=== PATIENT | male | born 1940 | race Caucasian/White ===

== ENCOUNTER 2019-11-01 05:36 | Inpatient (IN) | payer OTHER ==
[2019-10-21 15:18] LABS: BASOPHILS # (AUTO) 0.1 X10'3 (0-0.2); BASOPHILS % (AUTO) 0.9 % (0-1); CLARITY,URINE CLEAR (Clear); COLOR,URINE YELLOW (Yellow); EOSINOPHILS # (AUTO) 0.1 X10'3 (0-0.9); GLUCOSE, URINE NEGATIVE (Neg); KETONES,URINE NEGATIVE (Neg); LEUKOCYTE ESTERASE ,URINE NEGATIVE (Neg); LYMPHOCYTES # (AUTO) 3.4 X10'3 (1.1-4.8); LYMPHOCYTES % (AUTO) 31.7 % (21-51); MEAN CORPUSCULAR VOLUME 86.6 FL (78-98); MEAN PLATELET VOLUME 9.5 FL (7.4-10.4); MONOCYTES # (AUTO) 0.5 X10'3 (0-0.9); MONOCYTES % (AUTO) 4.9 % (2-12); NEUTROPHILS # (AUTO) 6.6 X10'3 (1.8-7.7); NEUTROPHILS % (AUTO) 61.5 % (42-75); NITRITES, URINE NEGATIVE (Neg); OCCULT BLOOD,URINE NEGATIVE (Neg); PH,URINE 6.5 (4.8-8.0); PRE OP HEMOGLOBIN 15.2 g/dL (14.0-17.9); PRE OP PLATELET COUNT 176 X10'3 (140-440); PROTEIN,URINE NEGATIVE (Neg); RED BLOOD COUNT 4.91 X10'6 (4.70-6.10); RED CELL DISTRIBUTION WIDTH 13.2 % (11.5-14.5); UROBILINOGEN,URINE 0.2 E.U/dL (0.2-1.0)
[2019-10-21 15:27] LABS: UA COLLECTION TYPE CLN CATCH MIDSTREAM
[2019-10-21 15:33] LABS: PRE OP PROTIME 10.3 SECONDS (9.0-12.0)
[2019-10-21 15:35] LABS: ALBUMIN 3.8 G/DL (3.4-5.0); ALBUMIN/GLOBULIN RATIO 1.3 (1.1-1.5); BLOOD UREA NITROGEN 24 MG/DL (7-18); BUN/CREATININE RATIO 23.3 (5.4-32.0); CALCIUM 8.4 MG/DL (8.5-10.1); CHLORIDE 107 MMOL/L (99-107); CREATININE 1.03 MG/DL (0.60-1.10); PRE OP ALT 20 U/L (30-65); PRE OP ANION GAP 7 (8-16); PRE OP AST 19 U/L (10-37); PRE OP BILIRUB, TOTAL 0.5 MG/DL (0.0-1.0); PRE OP GLUCOSE 113 MG/DL (70-104); PRE OP POTASSIUM 4.1 MMOL/L (3.4-5.1); PRE OP SODIUM 140 MMOL/L (135-145); TOTAL CARBON DIOXIDE 25.6 MMOL/L (24-32); TOTAL PROTEIN 6.7 G/DL (6.4-8.2); eGFR 69 ML/MIN
[2019-10-21 15:55] LABS: MEAN CORPUSCULAR HGB CONC 34.8 g/dL (33.0-36.5); PRE OP HEMATOCRIT 43.3 % (42.0-52.0)
[2019-10-21 16:00] LABS: ALKALINE PHOSPHATASE 83 IU/L (46-116)
[2019-11-01] VITALS (18 sets, daily range): BP systolic 99–146; BP diastolic 51–85
[~2019-11-01] VITALS: Ht 172.7 cm; Wt 78.1 kg
[~2019-11-01 05:36] MED LIST: ALPR-624 PO; ASCO500C15 PO; ASPI-611 PO; CHOL400T14 PO; CLOP75TA15 PO; CYAN-51 PO; EVOL140P; FINA5TAB11 PO; FISH OIL; FLO0.4C PO; LISI-604 PO; MAGN400C PO; NAPR220C15 PO; NITR0.4T48 SL; OMEP-297 PO; POTASSIUM; RANO500T3 PO; UBID100C16 PO; cefazolin/dext.iso 2gm/100ml 100 ML IV ONE; famotidine 20mg tablet PO ONE; ringers solution, lacted 1,000 ML IV SCH
[2019-11-01] MEDS ORDERED: LIDOcaine 1% (10mg/ml) 2ml vial ONE (06:01)
[2019-11-01] MEDS ORDERED: labetalol 20mg/4ml (5mg/ml) syringe IV PRN (06:30)
[2019-11-01] MEDS ORDERED: ondansetron/PF 4mg/2ml inj IV PRN ×2 (06:30→13:50)
[2019-11-01] MEDS ORDERED: hydrALAZINE 20mg/ml inj. IV PRN (06:30)
[2019-11-01] MEDS ORDERED: ringers solution, lacted 1,000 ML IV SCH (06:30)
[2019-11-01] MEDS ORDERED: morphine 4 MG/ML inj SYRINge IV PRN ×2 (06:30)
[2019-11-01] MEDS ORDERED: fentaNYL/PF 50MCG/1 ML 2ML syringe IV PRN ×2 (06:30)
[2019-11-01] MEDS ORDERED: epiNEPHrine 1 mg/ml inj ONE (06:47)
[2019-11-01] MEDS ORDERED: bacitracin 15gm ointment TP ONE (06:47)
[2019-11-01] MEDS ORDERED: gentamicin 40 MG/1 ML inj ONE (06:47)
[2019-11-01] MEDS ORDERED: triamcinolone acetonide 40mg/ml inj ONE (06:47)
[2019-11-01] MEDS ORDERED: BUPIVAcaine/PF 2.5 mg/ml (0.25%) 30ml vial ONE (06:47)
[2019-11-01] MEDS ORDERED: BUPIVACAINE liposomal/PF 13.3 MG/ML vial IM ONE (06:48)
[2019-11-01] MEDS ORDERED: Thrombin (Bovine) 5,000 unit vial TP ONE (06:48)
[2019-11-01] MEDS ORDERED: sevoflurane 250ml liquid IH ONE (06:50)
[2019-11-01] MEDS ORDERED: etomidate 2mg/ml inj. ONE (06:50)
--- NOTE | 2019-11-01 06:51 | NUR ---
C/O NUMBNESS HIP TO TOES ON THE LEFT, WITH SOME MUSCLE WEAKNESS AND CRAMPS ON LEFT LEG.
--- NOTE | 2019-11-01 06:54 | NUR ---
C/O PAIN L LUMBAR AREA TO L TOES
[2019-11-01] MEDS ORDERED: fentaNYL /PF 50mcg/ml 5ml ampule ONE (07:11)
[2019-11-01] MEDS ORDERED: midazolam 2 mg/2 ml injection ONE (07:11)
[2019-11-01] MEDS ORDERED: ondansetron/PF 4mg/2ml inj ONE (07:12)
[2019-11-01] MEDS ORDERED: rocuronium 10mg/ml inj IV ONE (07:12)
[2019-11-01] MEDS ORDERED: dexamethasone sod phosphate 4mg/ml inj. ONE (07:12)
[2019-11-01] MEDS ORDERED: LIDOcaine 2% (20mg/ml) 5ml vial ONE ×2 (07:12→09:36)
[2019-11-01] MEDS ORDERED: propofol inj 20 ML IV ONE ×3 (07:12→09:36)
[2019-11-01] MEDS ORDERED: tranexamic acid inj. 1,000 MG in normal saline 100ml IV soln 100 ML IV ONE (07:40)
[2019-11-01] MEDS ORDERED: vancomycin 1,000mg inj ONE (07:40)
[2019-11-01] MEDS ORDERED: phenylephrine 10mg/ml inj. ONE (08:12)
[2019-11-01] MEDS ORDERED: ePHEDrine 50MG/ML INJ. ONE (08:59)
[2019-11-01] MEDS ORDERED: fentaNYL/PF 50MCG/1 ML 2ML syringe ONE (10:59)
[2019-11-01] MEDS ORDERED: ceFAZolin 1000mg inj ONE ×2 (11:48)
[2019-11-01] MEDS ORDERED: morphine 10mg/ml inj. ONE (12:05)
--- NOTE | 2019-11-01 13:35 | NUR ---
Received from OR via BED , accompanied by Anesthesiologist DR LIRA and report given by Anesthesiolgist. PATIENT WAKING UP, DENIES PAIN, V/S WNL, NEUROVASCULAR CHECKS INTACT, 18G PIV LUE , DRESSING TO SPINE W/ HV TO GRAVITY CDI W/ SCD ON. F/C DRAINING CLEAR YELLOW URINE.
[2019-11-01] MEDS ORDERED: CADD PCA waste documentation MC PRN (13:55)
[2019-11-01] MEDS ORDERED: naloxone 0.4 mg/ml inj IV PRN (13:55)
--- NOTE | 2019-11-01 14:20 | NUR ---
received report from Juan
--- NOTE | 2019-11-01 14:45 | NUR ---
PATIENT SLEEPY BUT ORIENTED X4, DENIES PAIN, V/S WNL, NEUROVASCULAR CHECKS INTACT, 18G PIV LUE , DRESSING TO SPINE W/ HV TO GRAVITY CDI W/ SCD ON. F/C DRAINING CLEAR YELLOW URINE. NO NEURO DEFICETS OBSERVED, PUPILS PEARRLA, CARRASCO WITH EQUAL STRENGTH AND CSM INTACT.. PATIENT TAKEN TO 4007 WITH ALL BELONGINGS AND HOOKED UP TO MONITORS IN ROOM AND REPORT GIVEN TO SPRAYING MACHINE OPERATOR WHO HAS TAKEN OVER PATIENT CARE
[2019-11-01] MEDS ORDERED: ALPRAZolam 0.5mg tablet PO PRN (15:30)
[2019-11-01] MEDS ORDERED: nitroGLYCERIN 0.4mg SUBLingual tab SL PRN (15:30)
[2019-11-01] MEDS ORDERED: EVOLOCUMAB 140 MG IJ SCH (15:30)
[2019-11-01] MEDS: HYDROmorphone/NS 1 mg/ml CADD 50 ML IV SCH ×2 (16:14→17:00)
[2019-11-01] MEDS: OMEGA-3/DHA/EPA/FISH OIL 1 EACH CAPSULE.DR PO SCH ×2 (16:26→20:45)
[2019-11-01] MEDS ORDERED: HYDROmorphone inj. 0.5 MG/0.5 ML DISP.SYRIN IV PRN (17:10)
[2019-11-01] MEDS: potassium CL 20mEq in D5-1/2NS 1,000 ML IV SCH (17:14)
--- NOTE | 2019-11-01 18:00 | NUR ---
Patient in room ORTHO 4007. I have received report from LUC Kirkpatrick and had the opportunity to ask questions and assume patient care.
--- NOTE | 2019-11-01 18:04 | NUR ---
RECEIVED REPORT FROM DANG CALLE AND ASSUMED PATIENT CARE
--- NOTE | 2019-11-01 18:28 | NUR ---
Problems reprioritized. Patient report given, questions answered & plan of care reviewed with SHEA CALLE.
[2019-11-01] MEDS: cefazolin/dext.iso 2gm/100ml 100 ML IV SCH (19:07)
[2019-11-01] MEDS ORDERED: non-formulary drug (Ubidecarenone (Coq-10) 100 MG) PO SCH (20:00)
[2019-11-01] MEDS: magnesium oxide 400mg tablet PO SCH (20:45)
[2019-11-01] MEDS: lisinopril 5mg tablet PO SCH (20:46)
[2019-11-01] MEDS: tamsulosin 0.4mg capsule PO SCH (20:46)
[2019-11-01] MEDS ORDERED: HYDROcodone/acetaminophen 10/325mg tab PO PRN (20:55)
[2019-11-01] MEDS ORDERED: POTASSIUM 99 MG SCH (21:00)
[2019-11-01] MEDS: HYDROcodone/acetaminophen 10/325mg tab PO PRN (21:02)
[2019-11-01] MEDS: ranolazine 500mg SR tablet (Q12H) PO SCH (21:05)
[2019-11-02] VITALS (8 sets, daily range): BP systolic 104–125; BP diastolic 48–64
[2019-11-02] MEDS: cholecalciferol (vitamin D) 400 unit tablet PO SCH ×3 (00:08→19:58)
[2019-11-02] MEDS: cefazolin/dext.iso 2gm/100ml 100 ML IV SCH ×2 (00:09→09:26)
[2019-11-02] MEDS: finasteride 5mg tablet PO SCH ×2 (00:09→19:59)
[2019-11-02] MEDS: potassium CL 20mEq in D5-1/2NS 1,000 ML IV SCH ×3 (02:17→17:40)
[2019-11-02] MEDS: HYDROcodone/acetaminophen 10/325mg tab PO PRN ×3 (03:40→21:08)
[2019-11-02] MEDS ORDERED: magnesium hydroxide 30ml (MOM) UD suspension PO PRN (05:00)
--- NOTE | 2019-11-02 06:07 | NUR ---
REPORTED PATIENTS BRADYCARDIA TO MICHELLE DIAZ. NO NEW ORDERS AT THIS TIME. WILL CONTINUE TO MONITOR PATIENT VIA TELEMETRY.
--- NOTE | 2019-11-02 06:23 | NUR ---
REPORT GIVEN TO TATI CALLE
--- NOTE | 2019-11-02 06:27 | NUR ---
Patient in room ORTHO 4007. I have received report from Radha CALLE and had the opportunity to ask questions and assume patient care.
--- NOTE | 2019-11-02 07:00 | NUR ---
Received TC from Judy on Tele Box to report pts HR in 40's. Went to room to check on pt. Vital signs taken. HR 48. RR 18, BP 117/57. Pt states his "usual" HR is 60, but informs "thats when I am up and around." Pt states "I feel like I am breathing shallow." Gave pt an I/S and instructed on how to use. Pt immediately started using I/S and states his breathing felt much better. 02 decreased to 2l/m. P.O. remains at 98%. Dr. Sears here to make rounds. Informed of low HR. No new orders received. Will continue to assess and monitor.
[2019-11-02] MEDS: ascorbic acid 500mg tablet PO SCH (08:53)
[2019-11-02] MEDS: docusate sod 100mg capsule PO SCH (08:54)
[2019-11-02] MEDS: magnesium oxide 400mg tablet PO SCH ×2 (08:54→19:58)
[2019-11-02] MEDS: OMEGA-3/DHA/EPA/FISH OIL 1 EACH CAPSULE.DR PO SCH ×2 (08:55→19:58)
[2019-11-02] MEDS: tamsulosin 0.4mg capsule PO SCH ×2 (08:56→19:58)
[2019-11-02] MEDS: pantoprazole 40mg Tablet.DR PO SCH (09:29)
--- NOTE | 2019-11-02 11:30 | NUR ---
Student Medication Administration:For this medication-pass time frame [id number], all medications were reviewed,administered and documented per hospital policy by Cynthia Nix. Student documentation:I have reviewed and agree with all interventions, assessments performed and documented by Cynthia Nix.
--- NOTE | 2019-11-02 12:07 | NUR ---
Problems reprioritized. Patient report given, questions answered & plan of care reviewed with Radha CALLE.
--- NOTE | 2019-11-02 18:15 | NUR ---
RECEIVED REPORT FROM TATI CALLE AND ASSUMED PATIENT CARE
[2019-11-02] MEDS: lisinopril 5mg tablet PO SCH (19:58)
[2019-11-02] MEDS: ranolazine 500mg SR tablet (Q12H) PO SCH (19:58)
[2019-11-03] MEDS: HYDROcodone/acetaminophen 10/325mg tab PO PRN ×3 (03:02→19:14)
[2019-11-03] MEDS: potassium CL 20mEq in D5-1/2NS 1,000 ML IV SCH ×2 (03:45→16:13)
[2019-11-03 05:39] LABS: BASOPHILS % (AUTO) 0.2 % (0-1); EOSINOPHILS # (AUTO) 0.2 X10'3 (0-0.9); EOSINOPHILS % (AUTO) 1.3 % (0-6); HEMOGLOBIN 13.1 g/dl (14.0-17.9); LYMPHOCYTES # (AUTO) 4.5 X10'3 (1.1-4.8); LYMPHOCYTES % (AUTO) 34.6 % (21-51); MEAN CORPUSCULAR HEMOGLOBIN 31.1 PG (27.0-31.0); MEAN CORPUSCULAR HGB CONC 35.5 g/dL (33.0-36.5); MEAN CORPUSCULAR VOLUME 87.6 FL (78-98); MONOCYTES % (AUTO) 7.5 % (2-12); NEUTROPHILS # (AUTO) 7.4 X10'3 (1.8-7.7); NEUTROPHILS % (AUTO) 56.4 % (42-75); PLATELET COUNT 154 X10'3 (140-440); RED BLOOD COUNT 4.22 X10'6 (4.70-6.10); RED CELL DISTRIBUTION WIDTH 13.5 % (11.5-14.5)
[2019-11-03 05:52] LABS: ALBUMIN 2.8 G/DL (3.4-5.0); ANION GAP 9 (8-16); BLOOD UREA NITROGEN 15 MG/DL (7-18); BUN/CREATININE RATIO 16.9 (5.4-32.0); CALCIUM 7.8 MG/DL (8.5-10.1); CHLORIDE 106 MMOL/L (99-107); CREATININE 0.89 MG/DL (0.60-1.10); GLUCOSE 108 MG/DL (70-104); POTASSIUM 3.9 MMOL/L (3.5-5.1); SODIUM 141 MMOL/L (135-145); TOTAL CARBON DIOXIDE 26.4 MMOL/L (24-32); eGFR 82 ML/MIN
[2019-11-03 06:00] VITALS: BP 118/55
--- NOTE | 2019-11-03 06:22 | NUR ---
REPORT GIVEN TO YASMIN
--- NOTE | 2019-11-03 07:08 | NUR ---
Patient in room ORTHO 4007. I have received report from Haylee CALLE and had the opportunity to ask questions and assume patient care.
[2019-11-03] MEDS ORDERED: cyanocobalamin 500mcg tablet PO SCH (08:00)
[2019-11-03] MEDS: magnesium oxide 400mg tablet PO SCH ×2 (08:59→19:09)
[2019-11-03] MEDS: gabapentin 100mg capsule PO SCH ×3 (08:59→19:09)
[2019-11-03] MEDS: docusate sod 100mg capsule PO SCH (08:59)
[2019-11-03] MEDS: pantoprazole 40mg Tablet.DR PO SCH (08:59)
[2019-11-03] MEDS: OMEGA-3/DHA/EPA/FISH OIL 1 EACH CAPSULE.DR PO SCH ×2 (09:00→19:09)
[2019-11-03] MEDS: cholecalciferol (vitamin D) 400 unit tablet PO SCH ×2 (09:00→19:09)
[2019-11-03] MEDS: tamsulosin 0.4mg capsule PO SCH ×2 (09:01→19:09)
[2019-11-03] MEDS: ascorbic acid 500mg tablet PO SCH (09:01)
[2019-11-03 10:00] VITALS: BP 137/54
--- NOTE | 2019-11-03 10:56 | NUR ---
Student documentation: I have reviewed all interventions, assessments performed and documented by Chinyere Saavedra. Student Medication Administration: For this medication-pass time frame, all medication were reviewed, dispensed, administered and documented per hospital policy by Chinyere Saavedra.
--- NOTE | 2019-11-03 11:11 | NUR ---
Per DR. Sears patients head of bed was raised 30 degrees will stay like this for 2 hours with close monitoring then increased 30 more degrees if no headache present, will continue to monitor
--- NOTE | 2019-11-03 13:20 | NUR ---
Patient head of bed was increased to 60 degree patient is tolerating well no signs of a headache, will continue to monitor
--- NOTE | 2019-11-03 16:25 | NUR ---
patient still tolerating head of bed 60 degrees with no c/o headache, unable to put bed up to 90 degrees due to bed only being able to go up to 60 degree, called and left message for ,will continue to monitor
[2019-11-03 18:00] VITALS: BP 156/71
--- NOTE | 2019-11-03 18:30 | NUR ---
Problems reprioritized. Patient report given, questions answered & plan of care reviewed with . Matthew CALLE
[2019-11-03] MEDS: ranolazine 500mg SR tablet (Q12H) PO SCH (19:09)
[2019-11-03] MEDS: finasteride 5mg tablet PO SCH (21:37)
[2019-11-03] MEDS: lisinopril 5mg tablet PO SCH (21:37)
[2019-11-03 22:02] VITALS: BP 135/73
[2019-11-04] MEDS: potassium CL 20mEq in D5-1/2NS 1,000 ML IV SCH (03:20)
[2019-11-04 06:00] VITALS: BP 138/67
--- NOTE | 2019-11-04 06:32 | NUR ---
reported to days. noted pt working with PT at this time. Fernando rounded already. anticipate home if able to void and walk
--- NOTE | 2019-11-04 06:43 | NUR ---
Patient in room ORTHO 4007. I have received report from Hans CALLE and had the opportunity to ask questions and assume patient care.
[2019-11-04] MEDS: magnesium oxide 400mg tablet PO SCH (08:27)
[2019-11-04] MEDS: OMEGA-3/DHA/EPA/FISH OIL 1 EACH CAPSULE.DR PO SCH (08:27)
[2019-11-04] MEDS: gabapentin 100mg capsule PO SCH ×2 (08:27→13:26)
[2019-11-04] MEDS: docusate sod 100mg capsule PO SCH (08:27)
[2019-11-04] MEDS: pantoprazole 40mg Tablet.DR PO SCH (08:27)
[2019-11-04] MEDS: ascorbic acid 500mg tablet PO SCH (08:28)
[2019-11-04] MEDS: cholecalciferol (vitamin D) 400 unit tablet PO SCH (08:28)
[2019-11-04] MEDS: tamsulosin 0.4mg capsule PO SCH (08:28)
[2019-11-04 10:00] VITALS: BP 101/59
--- NOTE | 2019-11-04 14:51 | NUR ---
safe discharge home with in personal vehicle.
== END 2019-11-04 14:56 | disposition home or self-care (01) | DRG 519 ==
LOC: PAS IN 05:36 → EDSTATUS 07:30 → ORTHO 4S 14:45
PROVIDERS: ADMIT Orthopaedic Surgery; ATTEND Orthopaedic Surgery
PROC: 01NB0ZZ Release Lumbar Nerve, Open Approach (ICD-10-PCS; 2019-11-01)
PROC: 01NR0ZZ Release Sacral Nerve, Open Approach (ICD-10-PCS; 2019-11-01)
PROC: 00QT0ZZ Repair Spinal Meninges, Open Approach (ICD-10-PCS; 2019-11-01)
PROC: 00NY0ZZ Release Lumbar Spinal Cord, Open Approach (ICD-10-PCS; principal; 2019-11-01 07:39)
DX: M48.061 Spinal stenosis, lumbar region without neurogenic claudication (principal); D62 Acute posthemorrhagic anemia; G97.41 Accidental puncture or laceration of dura during a procedure; G83.9 Paralytic syndrome, unspecified; I10 Essential (primary) hypertension; I25.10 Atherosclerotic heart disease of native coronary artery without angina pectoris; N40.0 Benign prostatic hyperplasia without lower urinary tract symptoms; F41.9 Anxiety disorder, unspecified; K21.9 Gastro-esophageal reflux disease without esophagitis; M47.9 Spondylosis, unspecified; M54.16 Radiculopathy, lumbar region; M43.16 Spondylolisthesis, lumbar region; Z79.899 Other long term (current) drug therapy; Z79.82 Long term (current) use of aspirin; Y83.8 Other surgical procedures as the cause of abnormal reaction of the patient, or of later complication, without mention of misadventure at the time of the procedure; Y82.8 Other medical devices associated with adverse incidents; Y92.238 Other place in hospital as the place of occurrence of the external cause
CPT/HCPCS: Z7506; Z7508; 36415; 72100; 76000; 80048; 80053; 81003; 82948; 85025; 85610; 85730; 87081; 93005; 97110; 97161; 97530; A4215; A4618; A6223; A6253; A6449; A7000; C1758; C9250; C9290; G0378; J0171; J0690; J1100; J1580; J2001; J2250; J2270; J2370; J2405; J2704; J3010; J3301; J3370; J3420; J3480; J3490; J7050; J7120

== ENCOUNTER 2019-11-16 15:09 | Inpatient (IN) | payer OTHER ==
[~2019-11-16] VITALS: Ht 172.7 cm; Wt 79.5 kg
[~2019-11-16 15:09] MED LIST changes: -ASPI-611 PO; -CLOP75TA15 PO; -NAPR220C15 PO; -cefazolin/dext.iso 2gm/100ml 100 ML IV ONE; -famotidine 20mg tablet PO ONE; -ringers solution, lacted 1,000 ML IV SCH
[2019-11-16 17:45] LABS: BASOPHILS # (AUTO) 0.1 X10'3 (0-0.2); BASOPHILS % (AUTO) 0.5 % (0-1); EOSINOPHILS # (AUTO) 0.1 X10'3 (0-0.9); EOSINOPHILS % (AUTO) 1.3 % (0-6); HEMATOCRIT 43.1 % (42.0-52.0); LYMPHOCYTES # (AUTO) 2.9 X10'3 (1.1-4.8); MEAN CORPUSCULAR HEMOGLOBIN 30.5 PG (27.0-31.0); MEAN CORPUSCULAR HGB CONC 34.7 g/dL (33.0-36.5); MEAN CORPUSCULAR VOLUME 87.8 FL (78-98); MEAN PLATELET VOLUME 8.9 FL (7.4-10.4); MONOCYTES # (AUTO) 0.7 X10'3 (0-0.9); MONOCYTES % (AUTO) 5.6 % (2-12); NEUTROPHILS # (AUTO) 7.9 X10'3 (1.8-7.7); NEUTROPHILS % (AUTO) 67.6 % (42-75); PLATELET COUNT 249 X10'3 (140-440); RED BLOOD COUNT 4.91 X10'6 (4.70-6.10); RED CELL DISTRIBUTION WIDTH 13.3 % (11.5-14.5); WHITE BLOOD COUNT 11.7 X10'3 (4.5-11.0)
[2019-11-16 17:56] LABS: ALBUMIN 3.8 G/DL (3.4-5.0); ANION GAP 4 (8-16); BLOOD UREA NITROGEN 18 MG/DL (7-18); BUN/CREATININE RATIO 18.8 (5.4-32.0); CALCIUM 9.3 MG/DL (8.5-10.1); CHLORIDE 108 MMOL/L (99-107); CREATININE 0.96 MG/DL (0.60-1.10); GLUCOSE 99 MG/DL (70-104); POTASSIUM 4.7 MMOL/L (3.5-5.1); SODIUM 141 MMOL/L (135-145); TOTAL CARBON DIOXIDE 29.1 MMOL/L (24-32); eGFR 75 ML/MIN
--- NOTE | 2019-11-16 19:41 | NUR ---
Pt returned from MRI at this time.
[2019-11-16] MEDS ORDERED: gadobutrol 10mmol/10ml inj. IV ONE (19:49)
[2019-11-16] MEDS ORDERED: LIDOcaine 1% 30ml preserv. free vial IJ ONE (20:10)
[2019-11-16] MEDS ORDERED: cefazolin/dext.iso 2gm/100ml 100 ML IV SCH (21:02)
[2019-11-16] MEDS ORDERED: morphine 2 MG/ML inj. syringe IV PRN (22:15)
[2019-11-16] MEDS ORDERED: acetaminophen 325mg tablet PO PRN (22:15)
[2019-11-16] MEDS ORDERED: nitroGLYCERIN 0.4mg SUBLingual tab SL PRN (22:20)
--- NOTE | 2019-11-16 23:30 | NUR ---
PT ARRIVED TO 4022B FROM ER. PT HAS BEEN ORIENTED TO THE ROOM. VSS. DRESSING TO THE LUMBER AREA,CDI. RECEIVED REPORT FROM LUC RODRIGUEZ PRIOR TO PT'S ARRIVAL.
[2019-11-17] VITALS: BP 158/76
[2019-11-17] MEDS: normal saline 1000ml 1,000 ML IV SCH (00:30)
[2019-11-17 02:18] VITALS: BP 152/73
[2019-11-17] MEDS ORDERED: HYDROcodone/acetaminophen 10/325mg tab PO PRN (04:45)
[2019-11-17] MEDS: HYDROcodone/acetaminophen 10/325mg tab PO PRN ×3 (05:03→16:05)
[2019-11-17 06:00] VITALS: BP 141/67
[2019-11-17 06:06] LABS: BASOPHILS % (AUTO) 0.3 % (0-1); EOSINOPHILS # (AUTO) 0.2 X10'3 (0-0.9); EOSINOPHILS % (AUTO) 2.1 % (0-6); HEMATOCRIT 41.4 % (42.0-52.0); HEMOGLOBIN 14.7 g/dl (14.0-17.9); LYMPHOCYTES # (AUTO) 3.2 X10'3 (1.1-4.8); LYMPHOCYTES % (AUTO) 34.9 % (21-51); MEAN CORPUSCULAR HEMOGLOBIN 31.1 PG (27.0-31.0); MEAN CORPUSCULAR HGB CONC 35.5 g/dL (33.0-36.5); MEAN CORPUSCULAR VOLUME 87.6 FL (78-98); MEAN PLATELET VOLUME 9.1 FL (7.4-10.4); MONOCYTES # (AUTO) 0.8 X10'3 (0-0.9); MONOCYTES % (AUTO) 8.7 % (2-12); PLATELET COUNT 243 X10'3 (140-440); RED BLOOD COUNT 4.73 X10'6 (4.70-6.10); RED CELL DISTRIBUTION WIDTH 13.5 % (11.5-14.5); WHITE BLOOD COUNT 9.3 X10'3 (4.5-11.0)
[2019-11-17 06:15] LABS: ALBUMIN 3.4 G/DL (3.4-5.0); ANION GAP 8 (8-16); BLOOD UREA NITROGEN 18 MG/DL (7-18); BUN/CREATININE RATIO 17.8 (5.4-32.0); CALCIUM 8.5 MG/DL (8.5-10.1); CHLORIDE 107 MMOL/L (99-107); CREATININE 1.01 MG/DL (0.60-1.10); GLUCOSE 103 MG/DL (70-104); SODIUM 143 MMOL/L (135-145); TOTAL CARBON DIOXIDE 28.5 MMOL/L (24-32); eGFR 71 ML/MIN
--- NOTE | 2019-11-17 06:39 | NUR ---
Problems reprioritized. Patient report given, questions answered & plan of care reviewed with LUC HOFFMAN.
--- NOTE | 2019-11-17 06:49 | NUR ---
Patient in room ORTHO 4022. I have received report from Kary CALLE and had the opportunity to ask questions and assume patient care.
[2019-11-17] MEDS: magnesium oxide 400mg tablet PO SCH ×2 (07:28→21:22)
[2019-11-17] MEDS: pantoprazole 40mg Tablet.DR PO SCH (07:28)
[2019-11-17] MEDS: ascorbic acid 500mg tablet PO SCH (07:29)
[2019-11-17] MEDS: cholecalciferol (vitamin D) 400 unit tablet PO SCH ×2 (07:29→21:23)
[2019-11-17] MEDS ORDERED: non-formulary drug (Ubidecarenone (Coq-10) 100 MG) PO SCH (08:00)
[2019-11-17] MEDS ORDERED: FISH OIL SCH (08:00)
[2019-11-17] MEDS: cefazolin/dext.iso 2gm/100ml 100 ML IV SCH ×2 (08:37→16:05)
[2019-11-17 08:50] VITALS: BP 131/72
[2019-11-17 10:29] VITALS: BP 155/84
[2019-11-17] MEDS: ondansetron/PF 4mg/2ml inj IV PRN (11:45)
--- NOTE | 2019-11-17 11:47 | NUR ---
Initial: Pt admit w/ CSF fluid leak from back wound s/p recent sutures from removal L4-5 hemilaminotomy/foraminotomy 11/01. Wound reclosure in ER per MD note. PO 50% avg first regular diet meal decent PO given age. LBM 11/16. Will continue to monitor for additional protein needs. Rec: 1. continue regular diet 2. monitor for additional protein needs 3. wt per rx Addendum: 11/17/19 at [address] Amended: Links added.
--- NOTE | 2019-11-17 15:37 | NUR ---
PAGER ID: [phone] is patient NPO? Call back recieved from hospitalist and patient just needs to be aspiration precautions, will continue to monitor
[2019-11-17] MEDS ORDERED: calcium carbonate 500mg chew tablet PO PRN (15:40)
[2019-11-17] MEDS: lactose-reduced food (Ensure Enlive) - 237ml bottle PO SCH (17:22)
--- NOTE | 2019-11-17 18:11 | NUR ---
Patient in room ORTHO 4022. I have received report from Zee CALLE and had the opportunity to ask questions and assume patient care.
--- NOTE | 2019-11-17 18:30 | NUR ---
Patient in room ORTHO 4022B. I have received report from Satnam and had the opportunity to ask questions and assume patient care.
[2019-11-17] MEDS ORDERED: finasteride 5mg tablet PO SCH (21:00)
[2019-11-17] MEDS: tamsulosin 0.4mg capsule PO SCH (21:21)
[2019-11-17] MEDS: lisinopril 5mg tablet PO SCH (21:21)
[2019-11-17] MEDS: potassium chloride 10mEq ER tablet PO SCH (21:22)
[2019-11-17] MEDS: ranolazine 500mg SR tablet (Q12H) PO SCH (21:22)
[2019-11-17 22:00] VITALS: BP 170/69
[2019-11-18] MEDS: cefazolin/dext.iso 2gm/100ml 100 ML IV SCH ×3 (00:58→17:42)
[2019-11-18] MEDS: HYDROcodone/acetaminophen 10/325mg tab PO PRN ×2 (01:00→08:15)
[2019-11-18 06:05] LABS: BASOPHILS % (AUTO) 0.2 % (0-1); EOSINOPHILS # (AUTO) 0.2 X10'3 (0-0.9); EOSINOPHILS % (AUTO) 1.6 % (0-6); HEMATOCRIT 43.6 % (42.0-52.0); HEMOGLOBIN 15.2 g/dl (14.0-17.9); LYMPHOCYTES # (AUTO) 3.8 X10'3 (1.1-4.8); LYMPHOCYTES % (AUTO) 33.8 % (21-51); MEAN CORPUSCULAR HEMOGLOBIN 30.7 PG (27.0-31.0); MEAN CORPUSCULAR HGB CONC 34.9 g/dL (33.0-36.5); MEAN CORPUSCULAR VOLUME 87.9 FL (78-98); MEAN PLATELET VOLUME 9.2 FL (7.4-10.4); MONOCYTES % (AUTO) 8.5 % (2-12); NEUTROPHILS # (AUTO) 6.3 X10'3 (1.8-7.7); NEUTROPHILS % (AUTO) 55.9 % (42-75); PLATELET COUNT 242 X10'3 (140-440); RED BLOOD COUNT 4.96 X10'6 (4.70-6.10); RED CELL DISTRIBUTION WIDTH 13.6 % (11.5-14.5); WHITE BLOOD COUNT 11.3 X10'3 (4.5-11.0)
[2019-11-18 06:25] LABS: ALBUMIN 3.4 G/DL (3.4-5.0); ANION GAP 3 (8-16); BLOOD UREA NITROGEN 18 MG/DL (7-18); CALCIUM 9.1 MG/DL (8.5-10.1); CHLORIDE 106 MMOL/L (99-107); GLUCOSE 110 MG/DL (70-104); POTASSIUM 4.5 MMOL/L (3.5-5.1); SODIUM 139 MMOL/L (135-145); TOTAL CARBON DIOXIDE 30.1 MMOL/L (24-32); eGFR 72 ML/MIN
--- NOTE | 2019-11-18 06:30 | NUR ---
Problems reprioritized. Patient report given, questions answered & plan of care reviewed with LUC Acevedo.
[2019-11-18] MEDS: lactose-reduced food (Ensure Enlive) - 237ml bottle PO SCH ×2 (08:00→18:00)
[2019-11-18] MEDS ORDERED: cyanocobalamin 500mcg tablet PO SCH (08:00)
[2019-11-18] MEDS: magnesium oxide 400mg tablet PO SCH ×2 (08:16→21:06)
[2019-11-18] MEDS: pantoprazole 40mg Tablet.DR PO SCH (08:16)
[2019-11-18] MEDS: ascorbic acid 500mg tablet PO SCH (08:16)
[2019-11-18] MEDS: cholecalciferol (vitamin D) 400 unit tablet PO SCH ×2 (08:16→21:05)
[2019-11-18] MEDS: finasteride 5mg tablet PO SCH (08:17)
[2019-11-18 10:00] VITALS: BP 150/69
[2019-11-18] MEDS: ondansetron/PF 4mg/2ml inj IV PRN ×2 (13:27→19:16)
--- NOTE | 2019-11-18 17:59 | NUR ---
administered norco 1 tab and patient immediatley vomited med back up. wasted and non admin norco with nurse witness and patient stated he did not need another norco due to repositioning making him feel better
--- NOTE | 2019-11-18 18:00 | NUR ---
Patient in room ORTHO 4022. I have received report from LUC Acevedo and had the opportunity to ask questions and assume patient care.
--- NOTE | 2019-11-18 18:19 | NUR ---
gave report to keyonna CALLE
[2019-11-18 19:00] VITALS: BP 146/63
[2019-11-18] MEDS: potassium chloride 10mEq ER tablet PO SCH (21:00)
[2019-11-18] MEDS: tamsulosin 0.4mg capsule PO SCH (21:03)
[2019-11-18] MEDS: ranolazine 500mg SR tablet (Q12H) PO SCH (21:04)
[2019-11-18] MEDS: lisinopril 5mg tablet PO SCH (21:32)
[2019-11-18 22:00] VITALS: BP 120/72
[2019-11-18] MEDS ORDERED: aspirin/acetaminophen/caffeine tablet PO PRN (22:00)
[2019-11-19] MEDS: normal saline 1000ml 1,000 ML IV SCH (00:01)
[2019-11-19] MEDS: cefazolin/dext.iso 2gm/100ml 100 ML IV SCH ×2 (00:01→08:43)
[2019-11-19 06:00] VITALS: BP 127/67
[2019-11-19 06:37] LABS: ALBUMIN 3.3 G/DL (3.4-5.0); ANION GAP 11 (8-16); BLOOD UREA NITROGEN 19 MG/DL (7-18); CALCIUM 8.8 MG/DL (8.5-10.1); CHLORIDE 102 MMOL/L (99-107); CREATININE 0.95 MG/DL (0.60-1.10); GLUCOSE 105 MG/DL (70-104); POTASSIUM 3.7 MMOL/L (3.5-5.1); SODIUM 137 MMOL/L (135-145); TOTAL CARBON DIOXIDE 24.1 MMOL/L (24-32); eGFR 76 ML/MIN
[2019-11-19 06:38] LABS: BASOPHILS % (AUTO) 0.3 % (0-1); EOSINOPHILS # (AUTO) 0.2 X10'3 (0-0.9); EOSINOPHILS % (AUTO) 1.4 % (0-6); HEMATOCRIT 42.4 % (42.0-52.0); LYMPHOCYTES # (AUTO) 5.4 X10'3 (1.1-4.8); LYMPHOCYTES % (AUTO) 39.6 % (21-51); MEAN CORPUSCULAR HEMOGLOBIN 30.7 PG (27.0-31.0); MEAN CORPUSCULAR HGB CONC 35.4 g/dL (33.0-36.5); MEAN CORPUSCULAR VOLUME 86.8 FL (78-98); MEAN PLATELET VOLUME 9.5 FL (7.4-10.4); MONOCYTES # (AUTO) 1.2 X10'3 (0-0.9); MONOCYTES % (AUTO) 8.7 % (2-12); NEUTROPHILS # (AUTO) 6.9 X10'3 (1.8-7.7); PLATELET COUNT 244 X10'3 (140-440); RED BLOOD COUNT 4.88 X10'6 (4.70-6.10); RED CELL DISTRIBUTION WIDTH 13.3 % (11.5-14.5); WHITE BLOOD COUNT 13.8 X10'3 (4.5-11.0)
--- NOTE | 2019-11-19 06:43 | NUR ---
Problems reprioritized. Patient report given, questions answered & plan of care reviewed with LUC Sagastume.
[2019-11-19] MEDS ORDERED: CEPH-572 PO (07:11)
[2019-11-19] MEDS: cholecalciferol (vitamin D) 400 unit tablet PO SCH (08:00)
[2019-11-19] MEDS: magnesium oxide 400mg tablet PO SCH (08:00)
[2019-11-19] MEDS: lactose-reduced food (Ensure Enlive) - 237ml bottle PO SCH (08:00)
[2019-11-19] MEDS: ascorbic acid 500mg tablet PO SCH (08:00)
[2019-11-19] MEDS: pantoprazole 40mg Tablet.DR PO SCH (08:43)
[2019-11-19] MEDS: finasteride 5mg tablet PO SCH (08:43)
[2019-11-19 10:00] VITALS: BP 107/65
--- NOTE | 2019-11-19 12:03 | NUR ---
called in rx to [facility] on [facility]
[2019-11-28] MEDS ORDERED: EVOLOCUMAB 140 MG SQ SCH (08:00)
== END 2019-11-19 12:15 | disposition home or self-care (01) | DRG 908 ==
LOC: ER 15:10 → ED HOLD 23:05 → ORTHO 4S 23:12 → CMPBEDREQ 23:12
PROVIDERS: ADMIT Internal Medicine; ATTEND Orthopaedic Surgery
PROC: 0WQLXZZ Repair Lower Back, External Approach (ICD-10-PCS; principal; 2019-11-16)
PROC: BR39YZZ Magnetic Resonance Imaging (MRI) of Lumbar Spine using Other Contrast (ICD-10-PCS; 2019-11-16)
DX: T81.31XA Disruption of external operation (surgical) wound, not elsewhere classified, initial encounter (principal); G96.0 Cerebrospinal fluid leak; E78.5 Hyperlipidemia, unspecified; I10 Essential (primary) hypertension; I25.119 Atherosclerotic heart disease of native coronary artery with unspecified angina pectoris; M48.061 Spinal stenosis, lumbar region without neurogenic claudication; Y83.8 Other surgical procedures as the cause of abnormal reaction of the patient, or of later complication, without mention of misadventure at the time of the procedure; M43.16 Spondylolisthesis, lumbar region; K21.9 Gastro-esophageal reflux disease without esophagitis; N40.0 Benign prostatic hyperplasia without lower urinary tract symptoms; Z95.1 Presence of aortocoronary bypass graft; Z79.899 Other long term (current) drug therapy; Y92.89 Other specified places as the place of occurrence of the external cause
CPT/HCPCS: 36415; 72158; 80048; 85025; 87081; 96365; 97112; 97116; 97161; 97530; 99285; A9585; G0378; J2001; J2270; J2405; J7030